=== PATIENT | male | born 1980 | race Caucasian/White ===

== ENCOUNTER 2019-12-11 21:26 | Emergency (ER) | payer BC, OTHER ==
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
[2019-12-11 22:48] VITALS: BP 122/77
--- NOTE | 2019-12-12 09:38 | XRAY Report ---
PROCEDURE: Knee 3 View LT INDICATIONS: left knee pain TECHNIQUE: 3 views of the left knee(s) were acquired. COMPARISON: None. FINDINGS: Bones: No fractures or dislocations. No suspicious bony lesions. Soft tissues: No joint effusion. No suspicious soft tissue calcifications. IMPRESSION: No fracture or dislocation. Reviewed by: Adelaida Jones MD on 12/12/2019 9:37 AM PDT Approved by: Adelaida Jones MD on 12/12/2019 9:37 AM PDT Station ID: [id number]
== END 2019-12-11 22:50 | disposition home or self-care (01) ==
LOC: ED 21:26
DX: M23.92 Unspecified internal derangement of left knee (principal); V87.8XXA Person injured in other specified noncollision transport accidents involving motor vehicle (traffic), initial encounter; Y93.55 Activity, bike riding
CPT/HCPCS: 99283